=== PATIENT | male | born 1955 | race Caucasian/White ===

== ENCOUNTER 2017-02-23 18:30 | Emergency (ER) | payer BC ==
[~2017-02-23] VITALS: Ht 177.8 cm; Wt 83.8 kg
[2017-02-23 19:16] LABS: HEMATOCRIT 38.9 % (38.0-50.0); MCH 29.7 PG (29.0-34.0); MCHC 33.9 G/DL (30.0-36.0); MCV 87.4 FL (86-99); PLATELET COUNT 285 K/uL (156-360); RBC DIS.WIDTH-CV 12.4 % (11.8-14.6); RBC DIS.WIDTH-SD 39.6 % (39-53); RED BLOOD COUNT 4.45 M/uL (4.00-5.50); WHITE BLOOD COUNT 10.4 K/uL (4.1-10.2)
[2017-02-23 19:44] LABS: ANION GAP 13 MEQ/L (2-14); CHLORIDE 102 MEQ/L (99-109); POTASSIUM 3.9 MEQ/L (3.7-5.4); SAMPLE HEMOLYSIS CHECK 0; SAMPLE ICTERIC CHECK 0; SAMPLE LIPEMIA CHECK 0; SODIUM 138 MEQ/L (136-147); TOTAL BILIRUBIN 0.5 MG/DL (0.0-1.0)
[2017-02-23 19:50] LABS: ALKALINE PHOSPHATASE 63 IU/L (3-129); GFR ESTIMATE (CALCULATED) 51 mL/min/; GLUCOSE 174 mg/dL (70-99); LIPASE 18 U/L (1.0-51.0); UREA NITROGEN (BUN) 17 mg/dL (9-23)
[2017-02-23 20:07] LABS: ADD MIUA? YES; BILIRUBIN NEGATIVE; BLOOD LARGE; COLOR YELLOW ((YELLOW)); GLUCOSE (STRIP) >=500; KETONES 20; LEUKOCYTES NEGATIVE; NITRITE NEGATIVE; PROTEIN (STRIP) 100; SPECIFIC GRAVITY 1.015 (1.000-1.030); UROBILINOGEN 0.2 MG/DL (0.2-1.0)
[2017-02-23 20:12] LABS: BACTERIA NONE SEEN /HPF; EPITHELIAL CELLS NONE SEEN /HPF; MUCUS TRACE /LPF; RED BLOOD CELLS TNTC /HPF (0-5); UCUL ADDED? YES; WHITE BLOOD CELLS 0-5 /HPF (0-5)
[2017-02-23] MEDS ORDERED: ESOMEPRAZOLE MA40 MG PO (20:26)
[2017-02-23] MEDS ORDERED: BUPROPION XL300 MG PO (20:27)
[2017-02-23] MEDS ORDERED: VENLAFAXINE H37.5 M3 PO (20:27)
[2017-02-23] MEDS ORDERED: RAMIPRIL2.5 MG PO (20:28)
[2017-02-23] MEDS ORDERED: ALLOPURINOL300 MG PO (20:28)
[2017-02-23] MEDS ORDERED: ROSUVASTATIN CA10 MG PO (20:28)
[2017-02-23] MEDS ORDERED: CIALIS2.5 MG PO (20:29)
[2017-02-23] MEDS ORDERED: METFORMIN HCL500 MG PO (20:29)
[2017-02-23] MEDS ORDERED: FENOFIBRATE145 M1 PO (20:29)
[2017-02-23] MEDS ORDERED: LORAZEPAM0.5 MG PO (20:30)
[2017-02-23] MEDS ORDERED: LEVEMIR FL100 UNIT/1 SC (20:31)
[2017-02-23] MEDS ORDERED: VICTOZA 2-0.6 MG/0.1 SC (20:31)
[2017-02-23] MEDS ORDERED: KRILL OIL500 MG PO (20:32)
[2017-02-23] MEDS ORDERED: VITAMIN D31000 UNIT PO (20:32)
[2017-02-23] MEDS ORDERED: COQ-10100 MG PO (20:32)
[2017-02-23] MEDS ORDERED: ASPIR 8181 M1 PO (20:33)
[2017-02-23] MEDS ORDERED: FLEXERIL10 MG PO (20:33)
[2017-02-24 00:18] VITALS: BP 125/71
== END 2017-02-24 00:19 | disposition home or self-care (01) ==
LOC: EME 18:30
DX: N13.2 Hydronephrosis with renal and ureteral calculous obstruction (principal); E11.9 Type 2 diabetes mellitus without complications; Z79.84 Long term (current) use of oral hypoglycemic drugs; F32.9 Major depressive disorder, single episode, unspecified; M10.9 Gout, unspecified; Z79.82 Long term (current) use of aspirin
CPT/HCPCS: 74176; 80053; 81003; 83690; 85027; 87086; 99281; 99284; J7030